=== PATIENT | male | born 1965 | race Asian ===

== ENCOUNTER 2017-03-12 07:19 | Outpatient (CLI) | payer OTHER ==
[2017-03-12] MEDS ORDERED: MELOXICAM15 MG PO (07:34)
[2017-03-12] MEDS ORDERED: GABA300C2 PO (07:35)
== END 2017-03-12 07:24 | disposition short-term general hospital (02) ==
LOC: AMB 07:19
DX: M54.89 Other dorsalgia (principal); R39.198 Other difficulties with micturition
CPT/HCPCS: A0425; A0427

== ENCOUNTER 2017-03-12 07:30 | Emergency (ER) | payer OTHER ==
[~2017-03-12] VITALS: Ht 177.8 cm; Wt 104.3 kg
[2017-03-12 07:30] VITALS: TEMP 97.7
[2017-03-12] MEDS ORDERED: MELOXICAM15 MG PO (07:34)
[2017-03-12] MEDS ORDERED: GABA300C2 PO (07:35)
[2017-03-12 08:12] LABS: PLATELET COUNT 260 K/uL (142-355)
[2017-03-12 08:21] LABS: POTASSIUM 3.5 mmol/L (3.6-5.2)
[2017-03-12 08:50] LABS: PARTIAL THROMBOPLASTIN TIME 22.9 SECONDS (24.5-33.6)
[2017-03-12 11:15] VITALS: BP 136/93
== END 2017-03-12 11:30 | disposition home or self-care (01) ==
LOC: ED 07:30 → EDBD 07:30 → ED 11:30
PROVIDERS: Emergency Medicine
DX: N20.1 Calculus of ureter (principal)
CPT/HCPCS: 36415; 80053; 81000; 85027; 85610; 85730; 96361; 96374; 96375; 99284; J1885; J2405

== ENCOUNTER 2020-04-08 14:28 | Outpatient (CLI) | payer OTHER ==
[~2020-04-08 14:28] MED LIST: GABA300C2 PO; MELOXICAM15 MG PO
== END 2020-04-08 20:18 | disposition home or self-care (01) ==
LOC: RAD 14:28
DX: M54.5 Low back pain (principal)

== ENCOUNTER 2021-07-18 06:57 | Emergency (ER) | payer OTHER ==
[~2021-07-18] VITALS: Ht 177.8 cm; Wt 86.2 kg
[2021-07-18 07:03] VITALS: TEMP 98
[2021-07-18 08:54] VITALS: BP 128/89
== END 2021-07-18 08:55 | disposition still patient (30) ==
LOC: EDBD 06:57 → ED 06:57
DX: T17.328A Food in larynx causing other injury, initial encounter (principal); X58.XXXA Exposure to other specified factors, initial encounter; Y92.89 Other specified places as the place of occurrence of the external cause
CPT/HCPCS: 96372; 99283; J0696

== ENCOUNTER 2022-12-08 00:11 | Emergency (ER) | payer OTHER ==
[~2022-12-08] VITALS: Ht 177.8 cm; Wt 86.2 kg
[2022-12-08 00:11] VITALS: BP 117/81; TEMP 97.6
== END 2022-12-08 00:45 | disposition home or self-care (01) ==
LOC: ED 00:11 → EDBD 00:11 → ED 00:45
DX: T15.92XA Foreign body on external eye, part unspecified, left eye, initial encounter (principal)
CPT/HCPCS: 99282